=== PATIENT | male | born 1985 | race Caucasian/White ===

== ENCOUNTER 2017-04-28 20:33 | Emergency (ER) | payer MEDICAID, OTHER ==
[~2017-04-28] VITALS: Ht 170.2 cm; Wt 76.5 kg
[2017-04-28 20:41] VITALS: Ht 170.2 cm; Wt 76.5 kg
[2017-04-28] MEDS ORDERED: ELIM TOP (20:48)
[2017-04-28] MEDS ORDERED: HYDR-842 PO (20:48)
[2017-04-28] MEDS ORDERED: ACYC400T2 PO (20:48)
--- NOTE | 2017-04-28 21:02 | ERD ---
ER Documentation Chief Complaint Date/Time DATE: 04/28/17 TIME: 20:59 Chief Complaint generalize body rash x months HPI 31-year-old male comes in with a pruritic rash that is for the past 2-3 months after returning from [place]. Patient states that he start [place], with the family member and the developed this rash that has been pruritic and it is on his elbows, between his digits, on the legs and in the groin. Patient reports that there was a child there, with the same rash. It is pruritic, he states that there is some slight drainage to the area is major pushes on them. He has not had any fevers, chills, bodyaches, myalgias associated. ROS All systems reviewed and are negative except as per history of present illness. Medications Home Meds Active Scripts Hydroxyzine Hcl* (Atarax*) 25 Mg Tab, 25 MG PO Q6H Y for ITCHING, #30 TAB Prov:RADHA BERRY PA-C 04/28/17 Acyclovir* (Acyclovir*) 400 Mg Tablet, 400 MG PO 5 TIMES DAILY for 10 Days, TAB Prov:RADHA BERRY PA-C 04/28/17 Permethrin* (Elimite*) 5% Cr, 1 APPLIC TOP ONCE, #1 TUB Prov:RADHA BERRY PA-C 04/28/17 Reported Medications [None] No Conflict Check 01/18/14 Allergies Allergies: Coded Allergies: No Known Drug Allergies (Verified Allergy, Unknown, 04/28/17) PMhx/Soc History of Surgery: Yes (appendectomy) Anesthesia Reaction: No Hx Neurological Disorder: No Hx Respiratory Disorders: No Hx Cardiac Disorders: No Hx Psychiatric Problems: No Hx Miscellaneous Medical Probl: No Hx Alcohol Use: No Hx Substance Use: No Hx Tobacco Use: No Physical Exam Vitals Vital Signs Date Time Temp Pulse Resp B/P Pulse Ox O2 Delivery O2 Flow Rate FiO2 04/28/17 20:41 98.1 79 20 121/80 99 Physical Exam General: Well-developed, well-nourished. The patient appears in no acute distress. HEENT: Head is normocephalic, atraumatic. No scleral icterus. Neck: Supple. Nontender. Lungs: Clear to auscultation. Normal air movement. Heart: Regular rate and rhythm. S1 and S2 are normal. No murmurs, gallops, or rubs. Abdomen: Soft, nontender, nondistended. Bowel sounds are normoactive. Extremities: No clubbing or cyanosis. Normal pulses. Moving extremities x 4. No weakness. Neurologic: Alert and oriented 3. No focal deficits. Skin: Scattered scabbed likely that are erythematous, non-vesicular. It is also localized on the glans penis, and the shaft, over the skin covering the scrotum. Lesions are slightly elevated, erythematous. Nontender. Procedures/MDM MDM: 31-year-old male comes in with a generalized rash, they are scattered on the extremities, and the groin and between the digits, patient will be treated for scabies. There are no signs of meningitis, encephalitis, Edmund Murali's, drug reaction, allergic reaction, worse serious infection. The groin region does seem suspicious of possible HSV, patient will be given acyclovir. He was advised to recheck with a primary care doctor in a week, no improvement, he should follow up with dermatology. Departure Diagnosis: Primary Impression: Rash Condition: Good Patient Instructions: Scabies, Dermatitis, Non-Specific Additional Instructions: Call your primary care doctor TOMORROW for an appointment during the next 1-2 days.See the doctor sooner or return here if your condition worsens before your appointment time. RADHA BERRY PA-C Apr 28, 2017 21:02
== END 2017-04-28 20:47 | disposition home or self-care (01) ==
LOC: E/R 20:33
DX: R21 Rash and other nonspecific skin eruption (principal)
CPT/HCPCS: 99284

== ENCOUNTER 2019-04-27 18:59 | Emergency (ER) | payer MEDICAID ==
[~2019-04-27] VITALS: Ht 167.6 cm; Wt 72.9 kg
[~2019-04-27 18:59] MED LIST: ACYC400T2 PO; ELIM TOP; HYDR-842 PO
[2019-04-27 19:09] VITALS: Ht 167.6 cm; Wt 72.9 kg
--- NOTE | 2019-04-27 20:55 | ERD ---
ER Documentation Chief Complaint Chief Complaint low back pain x3 days w/ leg pain and DELGADO. unable to bend over HPI This is a 33-year-old male who presents to emerge department with complaints of right lower back pain for about 3 days. Also complains of nausea and vomiting. Stated that he vomited 4 times with nonbilious and nonbloody emesis today. Also complains of loss of appetite. Denies any injury. Also complains of discolored urine. Also complains of muscle tightness. Denies headache, head injury, loss of consciousness, dizziness, neck pain, neck stiffness, throat pain, difficulty swallowing, difficulty breathing lying flat, shoulder pain, chest pain, back pain, abdominal pain, nausea, vomiting, constipation, diarrhea, urinary symptoms, loss of bowel and bladder control, trauma, injury, falls, difficulty walking due to pain, numbness or tingling sensation, calf pain, recent travel, recent major surgery in the last 3 weeks, calf pain, recent long travel, recent exposure to any illness, recent antibiotic use in the last 3 months, fever, chills, seizures. Past medical history: Surgical history: Social: Denies smoking, use of alcoholic beverages, use of illegal drugs. ROS All systems reviewed and are negative except as per history of present illness. Medications Home Meds Active Scripts Ondansetron Hcl* (Zofran*) 4 Mg Tablet, 4 MG PO Q8H PRN for NAUSEA AND/OR VOMITING, #30 TAB Prov:SD SOLER F 04/27/19 Cyclobenzaprine Hcl* (Cyclobenzaprine Hcl*) 10 Mg Tablet, 10 MG PO TID PRN for MUSCLE SPASMS, #15 TAB Prov:PASILABANSD F 04/27/19 Ibuprofen* (Motrin*) 800 Mg Tab, 800 MG PO Q6H PRN for PAIN AND OR ELEVATED TEMP, #30 TAB Prov:PASILABANLAILAAR F 04/27/19 Hydroxyzine Hcl* (Atarax*) 25 Mg Tab, 25 MG PO Q6H PRN for ITCHING, #30 TAB Prov:RADHA BERRY PA-C 04/28/17 Acyclovir* (Acyclovir*) 400 Mg Tablet, 400 MG PO 5 TIMES DAILY for 10 Days, TAB Prov:RADHA BERRY PA-C 04/28/17 Permethrin* (Elimite*) 5% Cr, 1 APPLIC TOP ONCE, #1 TUB Prov:RADHA BERRY PA-C 04/28/17 Reported Medications [None] No Conflict Check 01/18/14 Allergies Allergies: Coded Allergies: No Known Drug Allergies (Verified Allergy, Unknown, 04/27/19) PMhx/Soc Medical and Surgical Hx: pt denies Medical Hx, pt denies Surgical Hx History of Surgery: Yes (appendectomy) Anesthesia Reaction: No Hx Neurological Disorder: No Hx Respiratory Disorders: No Hx Cardiac Disorders: No Hx Psychiatric Problems: No Hx Miscellaneous Medical Probl: No Hx Alcohol Use: No Hx Substance Use: No Hx Tobacco Use: No Smoking Status: Never smoker Physical Exam Vitals Physical Exam Const: No acute distress Head: Atraumatic Eyes: Normal Conjunctiva. Color appears normal for ethnicity. ENT: Normal External Ears, Nose and Mouth. Neck: Full range of motion. No meningismus. Resp: Clear to auscultation bilaterally Cardio: Regular rate and rhythm, no murmurs Abd: Soft, non tender, non distended. Normal bowel sounds. Negative Allan sign. Negative Marcy sign (heel jar test). Negative psoas sign. Negative Rovsing sign. No CVA tenderness. Able to jump 10 times without developing lo wer abdominal pain. Ambulatory with steady gait and without pain to abdomen. Skin: No petechiae or rashes. Color appears normal for ethnicity. No skin tenting. No signs of severe dehydration. Back: No midline or flank tenderness. Bilateral hips are stable and unremarkable. No signs of septic joint. Ext: No cyanosis, or edema. Positive right straight leg test. Negative right cross straight leg test. Negative left straight leg test. Negative left cross straight leg test. Capillary refills to bilateral lower extremities are less than 2 seconds. No neurovascular deficits. Neur: Awake and alert. No neurological deficits. Psych: Normal Mood and Affect Results 24 hrs Laboratory Tests Test 04/27/19 21:09 04/27/19 21:10 04/27/19 21:11 Urine Color RAJESH Urine Clarity SLIGHTLY CLOUDY Urine pH 5.0 Urine Specific [place] 1.033 Urine Ketones TRACE mg/dL Urine Nitrite NEGATIVE mg/dL Urine Bilirubin NEGATIVE mg/dL Urine Urobilinogen NEGATIVE mg/dL Urine Leukocyte Esterase NEGATIVE Kenisha/ul Urine Microscopic RBC 1 /HPF Urine Microscopic WBC 1 /HPF Urine Mucus MANY /HPF Urine Hemoglobin NEGATIVE mg/dL Urine Glucose NEGATIVE mg/dL Urine Total Protein 1+ mg/dl Urine Myoglobin, Quantitative <28 mcg/L White Blood Count 9.5 10^3/ul Red Blood Count 5.91 10^6/ul Hemoglobin 16.0 g/dl Hematocrit 47.4 % Mean Corpuscular Volume 80.2 fl Mean Corpuscular Hemoglobin 27.1 pg Mean Corpuscular 33.8 g/dl Hemoglobin Concent Red Cell Distribution Width 12.5 % Platelet Count 272 10^3/UL Mean Platelet Volume 8.6 fl Immature Granulocytes % 0.300 % Neutrophils % 78.0 % Lymphocytes % 11.8 % Monocytes % 9.1 % Eosinophils % 0.4 % Basophils % 0.4 % Nucleated Red Blood Cells % 0.0 /100WBC Immature Granulocytes # 0.030 10^3/ul Neutrophils # 7.4 10^3/ul Lymphocytes # 1.1 10^3/ul Monocytes # 0.9 10^3/ul Eosinophils # 0.0 10^3/ul Basophils # 0.0 10^3/ul Nucleated Red Blood Cells # 0.0 10^3/ul Sodium Level 139 mmol/L Potassium Level 3.9 mmol/L Chloride Level 100 mmol/L Carbon Dioxide Level 28 mmol/L Anion Gap 11 Blood Urea Nitrogen 17 mg/dl Creatinine 0.87 mg/dl Est Glomerular Filtrat > 60 mL/min Rate mL/min Glucose Level 100 mg/dl Calcium Level 9.2 mg/dl Total Bilirubin 0.9 mg/dl Direct Bilirubin 0.00 mg/dl Indirect Bilirubin 0.9 mg/dl Aspartate Amino 64 IU/L Transf (AST/SGOT) Alanine 89 IU/L Aminotransferase (ALT/SGPT) Alkaline Phosphatase 96 IU/L Creatine Kinase 93 IU/L Creatine Kinase Index 0.2 Creatinine Kinase MB (Mass) < 0.22 ng/ml Troponin I < 0.012 ng/ml Total Protein 9.0 g/dl Albumin 4.9 g/dl Globulin 4.10 g/dl Albumin/Globulin Ratio 1.19 Amylase Level 85 U/L Lipase 70 U/L Current Medications Medications Dose Sig/Mirian Start Time Status Last (Trade) Ordered Route PRN Stop Time Admin Dose Reason Admin Ondansetron 4 mg ONCE STAT 04/27/19 DC 04/27/19 HCl (Zofran IV 21:01 21:16 Inj) 04/27/19 21:03 Sodium 1,000 ml @ Q1H ONCE 04/27/19 DC 04/27/19 Chloride 1,000 mls/hr IV 21:30 21:15 04/27/19 22:29 Ketorolac 30 mg ONCE STAT 04/27/19 DC 04/27/19 Tromethamine IV 21:01 21:16 (Toradol) 04/27/19 21:03 Procedures/MDM Diagnostic tests: Urinalysis: Reviewed. Urine myoglobin: Sent. Blood works: Reviewed. Treatment: Saline lock. Normal saline IV bolus. Zofran IV. Toradol IM. Re-evaluation: No episode. Denies chest pain, back pain, abdominal pain, leg pain, leg tightness. No calf tenderness bilaterally. No neurovascular deficits. No neurological deficits. Stated that he feels much better at this time and that he is ready to go home. Patient and family members stated that they are comfortable to go home. Differential diagnosis I have low suspicion for sepsis, pyelonephritis, nephrolithiasis, obstructing kidney stones, renal failure, acute kidney injury, rhabdomyolysis. Final diagnosis: Sciatica. Viral syndrome. Prescription: Motrin. Flexeril. Zofran. Follow-up with PCP in the next 24-48 hours. Come back here in the emergency department for any new symptoms or any worsening symptoms. All questions and concerns were answered. Patient and family members verbalized understanding and agreed with plan of care. Hemodynamically stable on discharge. Departure Diagnosis: Primary Impression: Viral syndrome Additional Impression: Sciatica Condition: Stable Additional Instructions: Follow-up with PCP in the next 24-48 hours. Come back here in the emergency department for any new symptoms or any worsening symptoms. SD OSLER Apr 27, 2019 20:55
[2019-04-27] MEDS ORDERED: KETOROLAC 30 MG INJ IV STA (21:01)
[2019-04-27] MEDS ORDERED: ONDANSETRON 4 MG INJ IV STA (21:01)
[2019-04-27] MEDS ORDERED: SOD CHLORIDE 0.9% 1,000 ML IV ONE (21:30)
[2019-04-27] MEDS ORDERED: CYCL10TA7 PO (23:12)
[2019-04-27] MEDS ORDERED: ONDA4TAB8 PO (23:12)
[2019-04-27] MEDS ORDERED: IBUP800T48 PO (23:12)
[2019-04-27 23:32] VITALS: BP 111/58; PULSE 69; RESP 16
== END 2019-04-27 23:32 | disposition home or self-care (01) ==
LOC: FTE 18:59
DX: B34.9 Viral infection, unspecified (principal); M54.41 Lumbago with sciatica, right side
CPT/HCPCS: 36415; 80053; 81001; 82150; 82550; 82553; 83690; 83874; 84484; 85025; 96374; 96375; J1885; J2405; J7030; Z7502